=== PATIENT | male | born 1955 | race Caucasian/White ===

== ENCOUNTER 2021-09-02 12:42 | Emergency (ER) | payer OTHER, MEDICARE, SELFPAY ==
[~2021-09-02] VITALS: Ht 175.3 cm; Wt 54.4 kg
--- NOTE | 2021-09-02 13:35 | NUR ---
Pt triaged and brought via wheelchair to room 2.
--- NOTE | 2021-09-02 13:40 | NUR ---
Pt awake, alert and oriented x 3. Asking for breathing treatment re feeling his throat "restricted." SpO2 97% on room air. PMH throat CA surgery years ago. Awaiting MD mccullough.
[2021-09-02 13:42] VITALS: BP_SYST 124
--- NOTE | 2021-09-02 14:30 | NUR ---
Dr Gracia to bedside to assess patient
--- NOTE | 2021-09-02 14:37 | NUR ---
RT to bedside to administer breathing treatments
[2021-09-02] MEDS ORDERED: IPRATROPIUM BROM 0.5 MG/2.5 ML VIAL.NEB (ATROVENT) INH ONE (14:39)
[2021-09-02] MEDS ORDERED: ALBUTEROL SULFATE 0.083% 2.5 MG/3 ML VIAL.NEB INH ONE (14:39)
[2021-09-02] MEDS ORDERED: IPRATROPIUM/ALBUTEROL SULFATE 3 ML AMPUL.NEB (DUONEB) INH ONE (14:45)
[2021-09-02] MEDS ORDERED: methylPREDNISolone SOD SUCC 500 MG/VIAL (Solu-MEDROL) IV ONE (14:45)
[2021-09-02] MEDS ORDERED: MED4 PO (15:34)
--- NOTE | 2021-09-02 15:45 | NUR ---
Patient given written and verbal discharge instructions and verbalizes understanding. ER MD discussed with patient the results and treatment provided. Patient in stable condition. ID arm band removed. IV catheter removed intact and dressing applied, no active bleeding. Rx of Medrol given. Patient educated on pain management and to follow up with PMD. Pain scale 0/10. Opportunity for questions provided and answered. Medication side effect fact sheet provided.
[2021-09-02 16:09] VITALS: BP_SYST 124
== END 2021-09-02 16:09 | disposition home or self-care (01) ==
LOC: SED 12:42
DX: J04.0 Acute laryngitis (principal); Z85.818 Personal history of malignant neoplasm of other sites of lip, oral cavity, and pharynx; Z79.899 Other long term (current) drug therapy
CPT/HCPCS: 94640; 96374; 99283; J7613